=== PATIENT | female | born 1985 | race Hispanic/Latino ===

== ENCOUNTER 2019-08-28 03:23 | Observation (INO) | payer BC, OTHER ==
[2019-08-28] MEDS ORDERED: NA CHLORIDE 0.9% 1,000 ML ONE (04:05)
[2019-08-28 04:28] LABS: Absolute Lymphocytes (CBC) 1.8 K/uL (0.7-4.9); Basophils % 0.5 % (0-1.3); Hematocrit 37.5 % (36.0-45.0); Lymphocytes % 32.1 % (15.3-44.8); MPV 9.6 fL (7.6-11.3); RBC Red Blood Cell Count 4.35 M/uL (3.86-4.86)
[2019-08-28 04:35] LABS: ALT/SGPT 16 U/L (12-78); AST/SGOT 11 U/L (15-37); Albumin 3.5 g/dL (3.4-5.0); Alkaline Phosphatase 42 U/L (45-117); BUN Blood Urea Nitrogen 14 mg/dL (7-18); Bicarbonate 25 mmol/L (21-32); Bilirubin Direct < 0.1 mg/dL (0-0.2); Bilirubin Total 0.3 mg/dL (0.2-1.0); Glucose Level 109 mg/dL (74-106); Lipase 227 U/L (73-393); Potassium 3.9 mmol/L (3.5-5.1); Protein, Total 7.2 g/dL (6.4-8.2); Sodium Level 140 mmol/L (136-145)
[2019-08-28 05:02] LABS: Urine Blood TRACE (NEG); Urine Glucose NEGATIVE (NEG); Urine Protein NEGATIVE (NEG); Urine Specific Gravity 1.015 (1.005-1.030); Urine pH 6.5 (5.0-7.0)
[2019-08-28] MEDS ORDERED: PIPER/TAZO/NS 3.375gm 3.375 GM/100 ML BAG ONE (05:47)
--- NOTE | 2019-08-28 05:48 | EDPHYS ---
Physician Documentation [facility] Name: Hortensia Carroll Age: 34 yrs Sex: Female : 1985 Arrival Date: 08/28/2019 Time: 03:28 Bed 8 Private MD: Rufino Vazquez ED Physician Nicholas Sahu HPI: 08/28 04:17 This 34 yrs old Female presents to ER via Ambulatory with complaints of ABD nanda feel like its twisting side sensitive. 04:17 The patient presents with abdominal pain. Onset: The symptoms/episode began/occurred nanda this morning, last night. The symptoms radiate to Associated signs and symptoms: none. The symptoms are described as constant, crampy. Modifying factors: the symptoms are aggravated by food. Severity of pain: At its worst the pain was mild moderate in the emergency department the pain is unchanged. The patient has not experienced similar symptoms in the past. 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 - Social history:: Smoking status: Patient/guardian denies using tobacco. - Ebola Screening: : No symptoms or risks identified at this time. - Family history:: not pertinent. ROS: 04:17 Constitutional: Negative for fever, chills, and weight loss, Eyes: Negative for injury, nanda pain, redness, and discharge, ENT: Negative for injury, pain, and discharge, Neck: Negative for injury, pain, and swelling, Cardiovascular: Negative for chest pain, palpitations, and edema, Respiratory: Negative for shortness of breath, cough, wheezing, and pleuritic chest pain, Back: Negative for injury and pain, : Negative for injury, bleeding, discharge, and swelling, MS/Extremity: Negative for injury and deformity, Skin: Negative for injury, rash, and discoloration, Neuro: Negative for headache, weakness, numbness, tingling, and seizure, Psych: Negative for depression, anxiety, suicide ideation, homicidal ideation, and hallucinations, Allergy/Immunology: Negative for hives, rash, and allergies, Endocrine: Negative for neck swelling, polydipsia, polyuria, polyphagia, and marked weight changes, Hematologic/Lymphatic: Negative for swollen nodes, abnormal bleeding, and unusual bruising. 04:17 Abdomen/GI: Positive for abdominal pain, of the epigastric area, right upper quadrant and left upper quadrant. Exam: 04:17 Constitutional: This is a well developed, well nourished patient who is awake, alert, nanda and in no acute distress. Head/Face: Normocephalic, atraumatic. Eyes: Pupils equal round and reactive to light, extra-ocular motions intact. Lids and lashes normal. Conjunctiva and sclera are non-icteric and not injected. Cornea within normal limits. Periorbital areas with no swelling, redness, or edema. ENT: Nares patent. No nasal discharge, no septal abnormalities noted. Tympanic membranes are normal and external auditory canals are clear. Oropharynx with no redness, swelling, or masses, exudates, or evidence of obstruction, uvula midline. Mucous membranes moist. Neck: Trachea midline, no thyromegaly or masses palpated, and no cervical lymphadenopathy. Supple, full range of motion without nuchal rigidity, or vertebral point tenderness. No Meningismus. Chest/axilla: Normal chest wall appearance and motion. Nontender with no deformity. No lesions are appreciated. Cardiovascular: Regular rate and rhythm with a normal S1 and S2. No gallops, murmurs, or rubs. Normal PMI, no JVD. No pulse deficits. Respiratory: Lungs have equal breath sounds bilaterally, clear to auscultation and percussion. No rales, rhonchi or wheezes noted. No increased work of breathing, no retractions or nasal flaring. Back: No spinal tenderness. No costovertebral tenderness. Full range of motion. Female : Normal external genitalia. Skin: Warm, dry with normal turgor. Normal color with no rashes, no lesions, and no evidence of cellulitis. MS/ Extremity: Pulses equal, no cyanosis. Neurovascular intact. Full, normal range of motion. 04:17 Abdomen/GI: Inspection: abdomen appears normal, Bowel sounds: normal, Palpation: mild abdominal tenderness, moderate abdominal tenderness, in the epigastric area, right upper quadrant and left upper quadrant, Liver: no appreciated palpable abnormalities, Hernia: not appreciated. Vital Signs: 03:54 BP 123 / 91; Pulse 86; Resp 18; Temp 97.2; Pulse Ox 100% on R/A; Weight 69.4 kg; Height aa1 5 ft. 3 in. (160.02 cm); Pain 6/10; 04:50 BP 121 / 83; Pulse 70; Resp 18; Pulse Ox 99% ; ea 03:54 Body Mass Index 27.10 (69.40 kg, 160.02 cm) aa1 MDM: 03:49 Patient medically screened. [facility] 04:20 Data reviewed: vital signs, nurses notes, lab test result(s), radiologic studies, CT nanda scan. 08/28 03:57 Order name: Basic Metabolic Panel; Complete Time: 05:27 08/28 03:57 Order name: CBC with Diff; Complete Time: 05:27 aa08/28 03:57 Order name: Creatinine for Radiology; Complete Time: 05:27 08/28 03:57 Order name: Hepatic Function; Complete Time: 05:27 08/28 03:57 Order name: Lipase; Complete Time: 05:27 08/28 04:19 Order name: Urine Dipstick--Ancillary (enter results); Complete Time: 05:27 cm6 08/28 03:57 Order name: IV Saline Lock; Complete Time: 04:08 aa08/28 03:57 Order name: CT Abd/Pelvis - IV Contrast Only aa08/28 04:19 Order name: Urine --Ancillary (enter results); Complete Time: 05:27 cm6 08/28 03:57 Order name: Labs collected and sent; Complete Time: 04:08 aa08/28 03:57 Order name: Urine Dipstick-Ancillary (obtain specimen); Complete Time: 04:08 aa Administered Medications: 04:08 Drug: NS 0.9% 1000 ml Route: IV; Rate: 1 bolus; Site: right antecubital; wh 05:30 Follow up: Response: No adverse reaction; IV Status: Completed infusion; IV Intake: ea 1000ml 05:58 Drug: Zosyn 3.375 grams Route: IVPB; Infused Over: 60 mins; Site: right antecubital; ea 07:00 Follow up: Response: No adverse reaction; IV Status: Completed infusion; IV Intake: sv 100ml Disposition: 08/28/19 05:47 Hospitalization ordered by Quinn Banerjee for Observation. Preliminary diagnosis are Abdominal tenderness, Cholecystitis, Cholelithiasis. - Bed requested for Telemetry/MedSurg (observation). - Status is Observation. sv - Condition is Fair. - Problem is new. - Symptoms have improved. UTI on Admission? No Signatures: Dispatcher [employer] EDJessy Joseph RN RN Paula Black, RN RN aa1 Nicholas Sahu MD MD cha Garcia, Cindy RN RAJINDER Torie Jo RN Lynn Dorman ea Corrections: (The following items were deleted from the chart) 06:14 05:47 Hospitalization Ordered by Quinn Banerjee MD for Observation. Preliminary cg diagnosis is Abdominal tenderness; Cholecystitis; Cholelithiasis. Bed requested for Telemetry/MedSurg (observation). Status is Observation. Condition is Fair. Problem is new. Symptoms have improved. UTI on Admission? No. [facility] 07:39 06:14 08/28/2019 05:47 Hospitalization Ordered by Quinn Banerjee MD for Observation. sv Preliminary diagnosis is Abdominal tenderness; Cholecystitis; Cholelithiasis. Bed requested for Telemetry/MedSurg (observation). Status is Observation. Condition is Fair. Problem is new. Symptoms have improved. UTI on Admission? No.
--- NOTE | 2019-08-28 05:48 | ER ---
Nurse's Notes [facility] Name: Hortensia Carroll Age: 34 yrs Sex: Female : 1985 Arrival Date: 08/28/2019 Time: 03:28 Bed 8 Private MD: Rufino Vazquez Diagnosis: Abdominal tenderness;Cholecystitis;Cholelithiasis Presentation: 08/28 03:50 Presenting complaint: Patient states: upper abd pain since yesterday. States, "When I aa1 push on it it goes through to my back and I also had diarrhea a few times yesterday.". Transition of care: patient was not received from another setting of care. Onset of symptoms was August 27, 2019. Risk Assessment: Do you want to hurt yourself or someone else? Patient reports no desire to harm self or others. Initial Sepsis Screen: Does the patient meet any 2 criteria? No. Patient's initial sepsis screen is negative. Does the patient have a suspected source of infection? Yes: Acute abdominal pain. Care prior to arrival: None. 03:50 Method Of Arrival: Ambulatory aa1 03:50 Acuity: KAYLA 3 aa1 Triage Assessment: 03:54 General: Appears in no apparent distress. uncomfortable, Behavior is calm, cooperative, aa1 appropriate for age. 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 - Social history:: Smoking status: Patient/guardian denies using tobacco. - Ebola Screening: : No symptoms or risks identified at this time. - Family history:: not pertinent. Screenin:50 Abuse screen: Denies threats or abuse. Nutritional screening: No deficits noted. ea Tuberculosis screening: No symptoms or risk factors identified. Fall Risk None identified. Assessment: 04:23 General: Appears uncomfortable, Behavior is calm, cooperative, appropriate for age. ea Pain: Complains of pain in epigastric area. Neuro: Level of Consciousness is awake, alert, obeys commands, Oriented to person, place, time, situation. Cardiovascular: Patient's skin is warm and dry. Respiratory: Airway is patent Respiratory effort is even, unlabored, Respiratory pattern is regular, symmetrical. Derm: Skin is dry, Skin is pale, Skin temperature is warm. 04:26 Reassessment: pt refused medications other than NS at this time. ea 05:03 Reassessment: Patient and/or family updated on plan of care and expected duration. Pain ea level reassessed. Patient is alert, oriented x 3, equal unlabored respirations, skin warm/dry/pink. Pt returned from CT. Vital Signs: 03:54 BP 123 / 91; Pulse 86; Resp 18; Temp 97.2; Pulse Ox 100% on R/A; Weight 69.4 kg; Height aa1 5 ft. 3 in. (160.02 cm); Pain 6/10; 04:50 BP 121 / 83; Pulse 70; Resp 18; Pulse Ox 99% ; ea 03:54 Body Mass Index 27.10 (69.40 kg, 160.02 cm) aa1 ED Course: 03:28 Patient arrived in ED. es 03:29 Rufino Vazquez DO is Private Physician. es 03:49 Nicholas Sahu MD is Attending Physician. nanda 03:50 Torie Jo RN is Primary Nurse. ea 03:50 Patient has correct armband on for positive identification. Bed in low position. Call ea light in reach. 03:52 Triage completed. aa1 03:54 Arm band placed on right wrist. aa1 04:07 Inserted saline lock: 20 gauge in right antecubital area, using aseptic technique. mt Blood collected. 05:10 CT Abd/Pelvis - IV Contrast Only In Process Unspecified. EDMS 05:47 Quinn Banerjee MD is Hospitalizing Provider. nanda 05:59 No provider procedures requiring assistance completed. Patient admitted, IV remains in ea place. Administered Medications: 04:08 Drug: NS 0.9% 1000 ml Route: IV; Rate: 1 bolus; Site: right antecubital; 05:30 Follow up: Response: No adverse reaction; IV Status: Completed infusion; IV Intake: ea 1000ml 05:58 Drug: Zosyn 3.375 grams Route: IVPB; Infused Over: 60 mins; Site: right antecubital; ea 07:00 Follow up: Response: No adverse reaction; IV Status: Completed infusion; IV Intake: sv 100ml Intake: 05:30 IV: 1000ml; Total: 1000ml. ea 07:00 IV: 100ml; Total: 1100ml. sv Outcome: 05:47 Decision to Hospitalize by Provider. nanda 05:59 Instructed on the need for admit, Demonstrated understanding of instructions. ea 07:30 Admitted to Med/surg accompanied by tech, via wheelchair, with chart, Report called to jeffy Dick RN 07:30 Condition: stable 07:39 Patient left the ED. sv Signatures: Dispatcher [employer] Jessy Otoole, RN RN Paula Stokes, RN RN aa1 Nicholas Sahu MD MD cha Salyer, Michelle Velez mt, Elena, RN RN Lynn Nichole
[2019-08-28] MEDS ORDERED: ONDANSETRON 4 MG/2 ML VIAL IV PRN ×2 (07:39→17:17)
[2019-08-28] MEDS ORDERED: D5 0.45 NS 1,000 ML IV SCH (07:39)
[2019-08-28] MEDS ORDERED: PIPER/TAZO/NS 3.375gm 3.375 GM/100 ML BAG IVPB SCH ×2 (07:39→11:00)
[2019-08-28] MEDS ORDERED: ACETAMINOPHEN 325 MG TABLET PO PRN (07:39)
[2019-08-28] MEDS ORDERED: MORPHINE 4 MG/ML SYR IV PRN ×2 (07:39→17:17)
--- NOTE | 2019-08-28 09:16 | RAD REPORT ---
EXAM DESCRIPTION: CT - Abdomen Pelvis W Contrast - 08/28/2019 5:36 am CLINICAL HISTORY: The patient is 34 years old and is Female; ABD PAIN TECHNIQUE: Axial computed tomography images of the abdomen and pelvis with intravenous contrast. S agittal and coronal reformatted images were created and reviewed. This CT exam was performed using one or more of the following dose reduction techniques: automated exposure control, adjustment of t he mA and/or kV according to patient size, and/or use of iterative reconstruction technique. COMPARISON: No relevant prior studies available. FINDINGS: LUNG BASES: Unremarkable. No mass. No consolidation. ABDOMEN: LIVER: The liver is mildly fatty. GALLBLADDER AND BILE DUCTS: The gallbladder is distended with sludge and gallstones present. The re is no ductal dilatation. Mild pericholecystic inflammation/gallbladder wall thickening is noted. PANCREAS: No ductal dilation. No mass. SPLEEN: Unremarkable. ADRENALS: Unremarkable. No mass. KIDNEYS AND URETERS: Unremarkable. The kidneys enhance symmetrically. No obstructing renal or ur eteral calculus is seen. No hydronephrosis or hydroureter. No perinephric fluid or stranding. STOMACH AND BOWEL: The stomach is minimally fluid filled. The small bowel is normal in caliber. A moderate amount stool is present throughout the colon. There is no mucosal thickening or evidence of bowel obstruction. PELVIS: APPENDIX: The appendix is normal in caliber without surrounding inflammation. BLADDER: The bladder is well distended. REPRODUCTIVE: Unremarkable as visualized. ABDOMEN and PELVIS: INTRAPERITONEAL SPACE: Trace free fluid is present within the pelvis which is likely physiologic . No free air. BONES/JOINTS: No acute fracture. SOFT TISSUES: The soft tissues are normal. VASCULATURE: Unremarkable. No abdominal aortic aneurysm. LYMPH NODES: Unremarkable. No enlarged lymph nodes. IMPRESSION: Sludge and cholelithiasis with findings concerning for acute cholecystitis. Electronically signed by: Danitza Mcginnis MD 08/28/2019 5:29 AM CDT Due to temporary technical issues with the PACS/Fluency reporting system, reports are being signed by the in house radiologist as a courtesy to ensure prompt reporting. The interpreting radiologist is f ully responsible for the content of the report.
[2019-08-28] MEDS: FAMOTIDINE 20 MG/2 ML VIAL IV SCH ×2 (10:23→20:07)
[2019-08-28 11:41] VITALS: BMI 27.0
--- NOTE | 2019-08-28 13:36 | P.HP ---
Date of Service: 08/28/19 PC: This 34-year-old female presents emergency room with severe right upper quadrant abdominal pain for diagnosis and treatment. HPC: Patient has been experiencing right upper quadrant abdominal pain off and on for last few months. Last night had a sudden attack that was unrelenting. Still feels pain and discomfort this morning. PMH: 3 para 3 PSHx: No prior surgeries SOC: Clindamycin, doxycycline SYS REVIEW: No cough, wheeze, shortness of breath. No chest pain or palpitations. Denies any urinary complaints O/E awake alert stable at the moment HEENT: Within normal limits Chest: Clear ABD: Abdomen is soft, mild right upper quadrant tenderness LOCO: Intact DATA: Has documented sludge and pericholecystic fluid on CT IMPRESSION: Cholecystitis with cholelithiasis PLAN: I will take her to the operating room for laparoscopic possible open cholecystectomy with intraoperative cholangiogram. The risks of this procedure have been discussed. The possibility of bleeding, infection, injury to bile ducts blood vessels and intestines has been described. The possible need for an open and/or further surgeries and procedures was discussed. She understands and wants us to proceed.
[2019-08-28] MEDS ORDERED: Ringers Lactate 1,000 ML IV ONE ×2 (13:54→16:07)
[2019-08-28] MEDS ORDERED: MIDAZOLAM HCL 2 MG/2 ML INJ ONE (14:04)
[2019-08-28] MEDS ORDERED: FENTANYL CITR 100 MCG/2 ML ONE (14:04)
[2019-08-28] MEDS ORDERED: PROPOFOL 200 MG/20 ML VIAL IV ONE ×2 (14:04→14:42)
[2019-08-28] MEDS ORDERED: GLYCOPYRROLATE 0.2 MG/ML SYR ONE (14:05)
[2019-08-28] MEDS ORDERED: ONDANSETRON 4 MG/2 ML VIAL ONE (14:05)
[2019-08-28] MEDS ORDERED: NEOSTIGMINE 1 MG/ML -10 ML VIAL ONE (14:05)
[2019-08-28] MEDS ORDERED: LIDOCAINE 1% MPF 5 ML VIAL ONE (14:06)
[2019-08-28] MEDS ORDERED: ROCURONIUM 50 MG/5 ML VIAL IV ONE (14:06)
[2019-08-28] MEDS ORDERED: MORPHINE 10 MG/ML VIAL ONE (15:16)
--- NOTE | 2019-08-28 16:09 | P.OP ---
Preoperative diagnosis: Cholecystitis with cholelithiasis Postoperative diagnosis: The same Primary procedure: Laparoscopic cholecystectomy Secondary procedure: Cholangiogram Other procedure(s): SANDOR block (0.25% lidocaine) Anesthesia: General Estimated blood loss: Less than 10 cc Specimen: 1 gallbladder and contents Operative Technique: The patient was brought to the operating room placed supine on the table. After the induction of adequate general endotracheal anesthesia, the area of the abdomen is prepped with a DuraPrep solution, and draped in the usual aseptic manner. A subumbilical incision was made. This brought down through the skin and subcutaneous tissue. The Visiport was used to enter the peritoneal cavity and created a pneumoperitoneum to approximately 12 mm of mercury. Under direct vision a 5 mm trocar was placed in the upper midline, and 2 other 5 mm trocars on the right lateral side. The patient's head was then elevated and rolled towards the postage machine operator's side. We could see a distended and acutely inflamed gallbladder. There were adhesions to the serosal surface. These were taken down using blunt sharp dissection. Yolanda's pouch was finally cleared. A grasper was placed on the fundus of the gallbladder. Another 1 was placed down by Yolanda's pouch. Applying lateral traction we were able to dissect and expose the cystic duct and artery. The artery was dealt with 1st. It was clipped and divided in the usual manner. A clip was then placed between the gallbladder and the cystic duct. An opening was made into the cystic duct. We attempted then to pass the cholangiocath into the cystic duct. Initially were up against a valve, but after some manipulation the catheter easily passed into the common bile duct. Injection in the common bile duct lattice to show there was no stones distally. The catheter was not retrieved while being injected under fluoroscopy. We could see the contrast going up into the upper radicals. We did also identify that we were in the cystic duct. The catheter was now removed. Clips were now placed on the distal portion of the cystic duct. The cystic duct was then divided. The gallbladder was now dissected free from the liver bed, placed into an Endo-Catch, and brought out through the umbilical trocar site. The gallbladder fossa was inspected to ensure adequate hemostasis. It was irrigated with a saline solution and the irrigant aspirated from the peritoneal cavity. 0.25% Marcaine was aerosolized into the right upper quadrant and the gallbladder fossa. The umbilical trocar site was now approximated with an Endo Close and an absorbable sutures. The pneumoperitoneum was then collapsed, the suture tied, and barry applied to the skin. A further 0.25% Marcaine was injected around are incision sites. At the end of the procedure the patient was in a stable condition when sent to the recovery room. Needle sponge instrument count were correct. 1 specimen was sent for histopathology. Complications: None Transferred to: Recovery Room Condition: Good
[2019-08-28] MEDS: HYDROMORPHONE HCL 1 MG/ML INJ ONE ×4 (16:27→16:45)
[2019-08-28] MEDS ORDERED: PROMETHAZINE 25 MG/ML VIAL ONE (16:28)
[2019-08-28] MEDS: Ringers Lactate 1,000 ML IV SCH (17:17)
--- NOTE | 2019-08-28 17:33 | RAD REPORT ---
EXAM DESCRIPTION: RADCholangiogram Oper-Xray Or08/28/2019 5:14 pm CLINICAL HISTORY: Abdominal pain FINDINGS: The examination was performed by Dr. Banerjee. The cystic duct was cannulated and contrast administered. Contrast flowed into the duodenum. The common bile duct probably upper limits normal caliber. A filli ng defect is not seen One fluoroscopic spot images obtained. Fluoroscopy time 0.2 minute
[2019-08-28] MEDS ORDERED: Ringers Lactate 1,000 ML IV SCH (19:00)
[2019-08-28 22:57] VITALS: O2SAT 95
[2019-08-29] MEDS: Ringers Lactate 1,000 ML IV SCH ×2 (03:17→13:17)
[2019-08-29] MEDS: HYDROCODONE/APAP 7.5/325 MG TAB PO PRN ×2 (03:57→10:09)
[2019-08-29] MEDS ORDERED: FENTANYL CITR 100 MCG/2 ML ONE (06:33)
[2019-08-29] MEDS ORDERED: LIDOCAINE 2% MPF 5 ML VIAL ONE (06:34)
[2019-08-29] MEDS ORDERED: MIDAZOLAM HCL 2 MG/2 ML INJ ONE (06:34)
[2019-08-29] MEDS ORDERED: ONDANSETRON 4 MG/2 ML VIAL ONE (06:34)
[2019-08-29] MEDS ORDERED: PROPOFOL 200 MG/20 ML VIAL IV ONE (06:34)
[2019-08-29] MEDS ORDERED: ROCURONIUM 50 MG/5 ML VIAL IV ONE (06:36)
[2019-08-29] MEDS: FAMOTIDINE 20 MG/2 ML VIAL IV SCH (08:56)
--- NOTE | 2019-08-29 14:19 | P.PN ---
Date of Service: 08/29/19 S: Patient states she has disorder anterior abdominal. Hurts when she coughs or tries to move. Is voiding well on her own. O: Clinically patient looks well, vital signs are stable. Able to get up and move around. A: Surgically stable status post laparoscopic cholecystectomy with cholangiogram P: Discharge home, see me next week in my office, patient will call for an appointment.
[2019-08-29 14:43] VITALS: BP 141/89; TEMP 97.4
--- OUTSIDE RECORDS SUMMARY | 2019-09-16 05:11 | XMS REPORT ---
:1985 Author Organization [employer] Care Team Providers Name Role Phone George Rufino Provider Role Unavailable Allergies, Adverse Reactions, Alerts Substance Reaction Event Type N.K.D.A. Info Not Available Non Drug Allergy Problems Problem Type Condition Code Onset Dates Condition Status Assessment Migraine without aura and without G43.009 Active status migrainosus, not intractable Assessment Allergic rhinitis, unspecified J30.9 Active seasonality, unspecified trigger Assessment Seizure R56.9 Active Assessment Fatigue, unspecified type R53.83 Active Assessment Hypertriglyceridemia E78.1 Active Assessment Anxiety F41.9 Active Assessment Chronic sinusitis, unspecified J32.9 Active location Problem Seizure R56.9 Active Problem Migraine without aura and without G43.009 Active status migrainosus, not intractable Problem Hypertriglyceridemia E78.1 Active Problem Anxiety F41.9 Active Problem Chronic sinusitis, unspecified J32.9 Active location Problem Allergic rhinitis, unspecified J30.9 Active seasonality, unspecified trigger Medications Medication Code Code Instructions Start End Status Dosage System Date Date NuvaRing [facility] 99250137358 0.12-0.015 Active 1 ring MG/24HR Vaginal Fluticasone [facility] 34075794525 50 MCG/ACT Active 1 spray in Propionate Nasally Once a each nostril day Clonazepam [facility] [id number] 0.5 MG Orally Active 1 tablet at Once a day bedtime Keppra [facility] [id number] 500 MG Orally Active 1 tablet Twice a day Triamcinolone [facility] 29669466772 0.1 % May Active 1 application Acetonide Externally 17, to affected Twice a day 2018 area Xyzal [place] 0 Active not defined Results No Known Results Summary Purpose [employer] Submission
== END 2019-08-29 15:00 | disposition home or self-care (01) ==
LOC: ER 03:23 → ERHOLD 05:49 → 2ND 07:31
PROVIDERS: ADMIT Surgery; ATTEND Surgery
PROC: 0FT44ZZ Resection of Gallbladder, Percutaneous Endoscopic Approach (ICD-10-PCS; principal; 2019-08-28 14:00)
DX: K80.10 Calculus of gallbladder with chronic cholecystitis without obstruction (principal)
CPT/HCPCS: 96365; 96361; 85025; 80048; 36415; 81025; 80076; 88304; 81003; 83690; 74177; 74300; 99285; 47562; Q9967; J2704; J2710; J2550; J2250; J3010; J2543 ×2; J1170 ×2; G0378 ×4; J7799; J7120 ×3; J7030; J2405 ×2